=== PATIENT | male | born 1980 | race Two or more races ===

== ENCOUNTER 2017-04-26 08:49 | Outpatient (CLI) | payer MEDICARE ==
[2017-04-26 19:22] LABS: BASOPHILS # (AUTO) 0.1 10^3/uL (0.0-0.1); BASOPHILS % (AUTO) 0.7 %; EOSINOPHILS # (AUTO) 0.1 10^3/uL (0.0-0.7); EOSINOPHILS % (AUTO) 1.5 %; HCT - HEMATOCRIT 49.7 % (42.0-52.0); HGB - HEMOGLOBIN 16.7 g/dL (14.0-18.0); LYMPHOCYTES # (AUTO) 1.8 10^3/uL (1.5-3.5); LYMPHOCYTES % (AUTO) 23.4 %; MEAN CORPUSCULAR HGB CONC 33.6 g/dL (32.0-36.0); MEAN CORPUSCULAR VOLUME 89.2 fL (80.0-94.0); MEAN PLATELET VOLUME 9.6 fL (7.4-11.4); MONOCYTES # (AUTO) 0.5 10^3/uL (0.0-1.0); MONOCYTES % (AUTO) 6.9 %; NEUTROPHILS # (AUTO) 5.3 10^3/uL (1.5-6.6); NEUTROPHILS % (AUTO) 67.5 %; RED BLOOD COUNT 5.57 10^6/uL (4.70-6.10); RED CELL DISTRIBUTION WIDTH 13.9 % (12.0-15.0); UNCORRECTED WHITE BLOOD COUNT 7.9 x10^3/uL; WHITE BLOOD COUNT 7.9 x10^3/uL (4.8-10.8)
[2017-04-26 19:42] LABS: ALBUMIN/GLOBULIN RATIO 1.7 (1.0-2.2); BILIRUBIN,TOTAL 0.7 mg/dL (0.2-1.0); CALCIUM 9.4 mg/dL (8.5-10.3); POTASSIUM 3.7 mmol/L (3.5-5.0); TOTAL PROTEIN 7.2 g/dL (6.7-8.2)
== END 2017-04-26 08:50 | disposition home or self-care (01) ==
LOC: LAB.N 08:49
PROVIDERS: ATTEND Physician Assistant
DX: G47.00 Insomnia, unspecified (principal); R53.83 Other fatigue; F31.30 Bipolar disorder, current episode depressed, mild or moderate severity, unspecified
CPT/HCPCS: 36415; 80053; 84403; 84443; 85025

== ENCOUNTER → 2017-05-03 | Outpatient (CLI) | payer MEDICARE ==
[2017-05-07 23:21] LABS: TEST RESULT REPORT (())
== END ==
LOC: LAB.WCP 08:00
PROVIDERS: ATTEND Family Medicine
DX: E29.1 Testicular hypofunction (principal)
CPT/HCPCS: 36415; 81599; 84402; 84403

== ENCOUNTER 2017-06-18 06:18 | Day surgery (SDC) | payer MEDICARE, MEDICAID ==
[2017-06-18] MEDS ORDERED: ceFAZolin 2 GM/50 ML 50 ML IV ONE (06:33)
[2017-06-18] MEDS ORDERED: fentaNYL 100 MCG/2 ML VIAL IVP ONE (06:35)
[2017-06-18] MEDS ORDERED: DEXAMETHASONE 4 MG/ML VIAL IVP ONE (06:35)
[2017-06-18] MEDS ORDERED: LACTATED RINGERS 1,000 ML IV ONE (06:35)
[2017-06-18] MEDS ORDERED: SUCCINYLCHOLINE 200 MG/10 ML VIAL IVP ONE (06:35)
[2017-06-18] MEDS ORDERED: GLYCOPYRROLATE 1 MG/5 ML VIAL IVP ONE (06:35)
[2017-06-18] MEDS ORDERED: NEOSTIGMINE 1 MG/1 ML 10 ML MDV IVP ONE (06:35)
[2017-06-18] MEDS ORDERED: LIDOCAINE-MPF 2% 5 ML VIAL IM ONE (06:35)
[2017-06-18] MEDS ORDERED: ACETAMINOPHEN 1,000 MG/100 ML 100 ML IV ONE (06:35)
[2017-06-18] MEDS ORDERED: ROCURONIUM 50 MG/5 ML VIAL IVP ONE (06:35)
[2017-06-18] MEDS ORDERED: MIDAZOLAM 2 MG/2 ML VIAL IVP ONE (06:35)
[2017-06-18] MEDS ORDERED: ONDANSETRON 4 MG/2 ML VIAL IVP ONE (06:35)
[2017-06-18] MEDS ORDERED: BUPIVACAINE 0.5%-EPI 1:200000 PF 30 ML VIAL SUBQ ONE (08:26)
--- NOTE | 2017-06-18 08:56 | OPERATIVE REPORT ---
Operative Report - General Procedure Date: 06/18/17 Planned Procedure: Anal fistulotomy Pre-Op Diagnosis: Anal fistula Procedure Performed: Anal fistulotomy - Procedure Note Anesthesia Technique: General ET tube, Local (30 mL 1/2% marcaine with epinephrine) IV Fluids (mL): 850 Estimated Blood Loss (mL): 0 Complications: None. - Other Other Information/Narrative: OPERATIVE DESCRIPTION/REPORT: After verbal and written informed consent was obtained detailing the risks of infection, bleeding requiring transfusion with its risks, nerve injury, and , and after I met with the patient confirming the surgery and the site of the surgery, the patient was brought to the operative suite and placed supine on the operating table. Great care was taken to avoid pressure points to prevent pressure necrosis or nerve injury. Monitoring devices were applied along with TEDs and pneumatic compressive stockings (to prevent DVT). The patient received preoperative antibiotics for surgical prophylaxis. Joshua Marley sedated and anesthetized the patient for the entire procedure. The patient was placed prone and confirming the surgery and the site of the surgery , the patient was brought to the operative suite and placed supine on the operating table. and again great care was taken to avoid pressure points to prevent pressure necrosis or nerve injury. The patient was prepped and draped in the usual sterile manner. The surgical site was unique and easily identifiable and did not need to be marked preoperatively. A "time in" then confirmed that the paitient was identified with 3 identifiers (name, date and medical record number), the history and physical was in the chart, the signed consent confirming the procedure was in the chart, the patient was in the correct position, the aforementioned prophylactic measures were in place or given, we had the correct personel and equipment to complete the procedure and that anesthesia, surgery and nursing were given an opportunuty to express any concerns. With the agreement of everyone in the room, we proceeded with the operation. The bivalve anal retractor was placed in the patients anus after thoroughly lubricating it with a water-soluble lubricant. Examination revealed some slight internal and hemorrhoidal complexes as well as a fistula that originated at the 10:30 oclock position and exited at the 12 oclock position. A fistulotomy probe was placed from the origin to the exit with grest care to ensure that I did not form a false passage. The skin and subcutaneous tissue defined by the placement of the wire was then incised using Bovie electrocautery cutting down to the wire. The wire was removed and the fistulous passage was cauterized to allow for new healing to occur. No significant bleeding was noted. The surrounding tissues were then injected using half percent Marcaine with epinephrine for long-term pain control. This incision was left open and dressings were applied. At this point a time out was performed that confirmed that all the counts were correct, the procedure that was performed, the blood loss, the IV fluids administered, and the patients condition. All surgical counts were reported as correct. A dressing was applied. Having tolerated the procedure well, the patient was subsequently taken to short stay in good and stable condition.
[2017-06-18 09:06] VITALS: BP 115/74
[2017-06-18] MEDS ORDERED: HYDROcod/ACETAM 10 MG/325 MG TABLET ONE (09:33)
== END 2017-06-18 06:19 | disposition home or self-care (01) ==
LOC: SDS 06:18
PROVIDERS: ATTEND Surgery
PROC: 0DBQ0ZZ Excision of Anus, Open Approach (ICD-10-PCS; principal; 2017-06-18 07:30)
DX: K60.3 Anal fistula (principal); K64.8 Other hemorrhoids; F17.210 Nicotine dependence, cigarettes, uncomplicated
CPT/HCPCS: 46270; A9270; J0131; J0690; J7120

== ENCOUNTER 2018-10-16 15:00 | Outpatient (CLI) | payer MEDICARE ==
[2018-10-16 15:47] LABS: ALBUMIN 4.6 g/dL (3.2-5.5); ALBUMIN/GLOBULIN RATIO 1.5 (1.0-2.2); BILIRUBIN,TOTAL 0.9 mg/dL (0.2-1.0); CALCIUM 9.6 mg/dL (8.5-10.3); CREATININE 0.8 mg/dL (0.6-1.2); TOTAL PROTEIN 7.6 g/dL (6.7-8.2)
[2018-10-16 15:54] LABS: HB2 TOTAL 18.1 g/dL; HEMOGLOBIN A1C 0.62 g/dL; HEMOGLOBIN A1C % 5.3 % (4.6-6.2)
[2018-10-16 16:10] LABS: BASOPHILS % (AUTO) 0.5 %; EOSINOPHILS # (AUTO) 0.1 10^3/uL (0.0-0.7); EOSINOPHILS % (AUTO) 1.4 %; HGB - HEMOGLOBIN 16.7 g/dL (14.0-18.0); LYMPHOCYTES # (AUTO) 1.8 10^3/uL (1.5-3.5); LYMPHOCYTES % (AUTO) 21.8 %; MEAN CORPUSCULAR HEMOGLOBIN 30.1 pg (27.0-31.0); MEAN CORPUSCULAR HGB CONC 34.5 g/dL (32.0-36.0); MEAN CORPUSCULAR VOLUME 87.3 fL (80.0-94.0); MEAN PLATELET VOLUME 8.9 fL (7.4-11.4); MONOCYTES # (AUTO) 0.6 10^3/uL (0.0-1.0); MONOCYTES % (AUTO) 7.7 %; NEUTROPHILS # (AUTO) 5.5 10^3/uL (1.5-6.6); NEUTROPHILS % (AUTO) 68.6 %; PLT - PLATELET COUNT 218 10^3/uL (130-450); RED BLOOD COUNT 5.55 10^6/uL (4.70-6.10); RED CELL DISTRIBUTION WIDTH 14.2 % (12.0-15.0); WHITE BLOOD COUNT 8.1 x10^3/uL (4.8-10.8)
== END 2018-10-16 15:01 | disposition home or self-care (01) ==
LOC: LAB 15:00
PROVIDERS: ATTEND Surgery
DX: R10.9 Unspecified abdominal pain (principal); R73.9 Hyperglycemia, unspecified
CPT/HCPCS: 36415; 80053; 83036; 85025

== ENCOUNTER 2018-10-20 14:46 | Outpatient (CLI) | payer MEDICARE ==
[2018-10-20] MEDS ORDERED: IOVERSOL 320 50 ML VIAL ONE (14:54)
[2018-10-20] MEDS ORDERED: IOVERSOL 320 100 ML VIAL IVP ONE ×2 (14:54→16:33)
[2018-10-20] MEDS ORDERED: IOVERSOL 320 50 ML VIAL PO ONE (16:30)
--- NOTE | 2018-10-21 11:58 | CT Report ---
Reason: ABDOMINAL/PERINEAL PAIN,HX OF FISTULA Procedure Date: 10/20/2018 Accession Number: [id number] / [id number] Procedure: CT - Abdomen/Pelvis W/ CPT Code: FULL RESULT: EXAM: CT ABDOMEN AND PELVIS EXAM DATE: 10/20/2018 03:55 PM. CLINICAL HISTORY: Abdominal/perineal pain, history of fistula. COMPARISONS: ABDOMEN/PELVIS W/ 11/13/2015 10:53 AM. TECHNIQUE: Routine helical CT imaging was performed through the abdomen and pelvis. IV contrast: OPTIRAY 320 90 mL. Enteric contrast: Yes. Reconstructions: Coronal and sagittal. In accordance with CT protocol optimization, one or more of the following dose reduction techniques were utilized for this exam: automated exposure control, adjustment of mA and/or KV based on patient size, or use of iterative reconstructive technique. FINDINGS: Lung Bases: Unremarkable. Liver: Normal. No masses. Gallbladder/Bile Ducts: Unremarkable. Spleen: Normal. Pancreas: Normal. Adrenal Glands: Normal. Kidneys: Normal. No masses or hydronephrosis. Peritoneal Cavity/Bowel: There is diverticulosis predominantly of the sigmoid colon without diverticulitis. No free fluid, free air or adenopathy. No masses or acute inflammatory process. The appendix is well visualized and normal. Pelvic Organs: The perianal fat in the region of the levator ani appears unremarkable. The prostate is mildly asymmetric and contains a few calcifications, more prominent on the left which is nonspecific. There is no inguinal hernia. Vasculature: No aneurysms or other significant abnormality. Bones: No significant abnormality. Other: None. IMPRESSION: Prominent mildly asymmetric prostate of uncertain clinical significance. The ischioanal fossa region is unremarkable by CT. RADIA
== END 2018-10-20 14:47 | disposition home or self-care (01) ==
LOC: DI 14:46
PROVIDERS: ATTEND Surgery
DX: R10.9 Unspecified abdominal pain (principal); R10.2 Pelvic and perineal pain
CPT/HCPCS: 74177; Q9967

== ENCOUNTER 2020-04-01 22:07 | Emergency (ER) | payer MEDICARE ==
--- NOTE | 2020-04-01 22:48 | ED Physician Documentation ---
History of Present Illness - Stated complaint Stated Complaint: RASH ON BODY/PX/HEADACHE - Chief complaint Chief Complaint: General - History obtained from History obtained from: Patient - History of Present Illness Timing: Other (see below (different timeframes for different c/o)) Pain level now: 4 Improved by: no ameliorating factors Worsened by: no exacerbating factors - Additonal information Additional information: c/o 1 week of right chest "cramps" (per patient) radiating around right side of chest to right parathoracic area. He developed epigastric pain and bloating sensation 2-3 days ago. Reports fever Tmax 100.7 last night. he developed a right chest rash 2-3 days ago. Review of Systems Constitutional: reports: Fever. denies: Chills, Sweats Cardiac: reports: Chest pain / pressure (right chest wall pain). denies: Palpitations GI: reports: Abdominal Pain. denies: Nausea, Vomiting, Constipation, Diarrhea : denies: Dysuria, Frequency Skin: reports: Rash PD PAST MEDICAL HISTORY - Past Medical History Past Medical History: Yes Cardiovascular: None Respiratory: None Endocrine/Autoimmune: None GI: Hiatal hernia, Colon polyps, Other : None HEENT: None Psych: Bipolar disorder, Anxiety Musculoskeletal: None Derm: None - Past Surgical History Past Surgical History: Yes General: EGD, Colonoscopy Ortho: Other - Present Medications Home Medications: Ambulatory Orders Medication Instructions Recorded Confirmed Acyclovir 800 mg PO 5XD 7 Days #35 tablet 04/02/20 traMADol [Ultram] 50 - 100 mg PO Q6H PRN #20 tablet 04/02/20 - Allergies Allergies/Adverse Reactions: Allergies Allergy/AdvReac Type Severity Reaction Status Date / Time ibuprofen [From Advil] Allergy Severe Rash Verified 04/01/20 22:10 lithium [[place]] Allergy Severe Rash Verified 04/01/20 22:10 bee venom protein (honey bee) Allergy Unknown Verified 04/01/20 22:10 aripiprazole [From Abilify] AdvReac Unknown Verified 04/01/20 22:10 codeine AdvReac Unknown Verified 04/01/20 22:10 paroxetine AdvReac Unknown Verified 04/01/20 22:10 bee stings Allergy Respiratory Uncoded 04/01/20 22:10 - Social History Does the pt smoke?: Yes Smoking Status: Current every day smoker Does the pt drink ETOH?: Yes Does the pt have substance abuse?: No - Immunizations Immunizations are current?: Yes - POLST Patient has POLST: No PD ED PE NORMAL - Vitals Vital signs reviewed: Yes - General General: Alert and oriented X 3, No acute distress, Well developed/nourished - HEENT HEENT: Moist mucous membranes - Neck Neck: Supple, no meningeal sign - Cardiac Cardiac: RRR, No murmur, No gallop, No rub - Respiratory Respiratory: No respiratory distress, Clear bilaterally - Abdomen Abdomen: Normal bowel sounds, Soft, Non tender, Non distended PD ED PE EXPANDED - Derm Derm: Rash (right chest exanthem in dermatomal distribution from lateral aspect to anterior midline without crossing midline; exanthem consists of grouped vesicles on erythematous, patchy base) Results - Vitals Vitals: Oxygen O2 Source Room air - Labs Labs: Laboratory Tests 04/01/20 04/01/20 23:20 23:20 WBC 8.3 RBC 5.53 Hgb 16.3 Hct 48.9 MCV 88.4 MCH 29.5 MCHC 33.3 RDW 13.2 Plt Count 190 MPV 10.4 Neut # (Auto) 5.8 Lymph # (Auto) 1.5 [place] # (Auto) 0.7 Eos # (Auto) 0.2 Baso # (Auto) 0.0 Absolute Nucleated RBC 0.00 Nucleated RBC % 0.0 Sodium 136 Potassium 3.6 Chloride 101 Carbon Dioxide 25 Anion Gap 10.0 BUN 18 Creatinine 1.0 Estimated GFR (MDRD) 82 L Glucose 113 H Calcium 9.1 Total Bilirubin 0.7 AST 21 ALT 35 Alkaline Phosphatase 56 Total Protein 7.4 Albumin 4.2 Globulin 3.2 Albumin/Globulin Ratio 1.3 Lipase 40 - Rads (name of study) RUQ US Radiology: Prelim report reviewed, See rad report PD MEDICAL DECISION MAKING - ED course Complexity details: reviewed results, re-evaluated patient, considered differential, d/w patient ED course: rash on exam c/w shingles. rash appeared 2-3 days ago, will rx acyclovir. vicodin prescribed for pain. Patient expresses concern that he might have COVID. His symptoms sound inconsistent with COVID although he does report fever last night Tmax 100.7, and thus testing is reasonable and performed. There was incidental finding on US of possible GB (fundus) mass. I reviewed this result with patient and instructed him to follow up with his primary care provider, as this will need further testing. I stressed the importance of timely follow up. Departure - Departure Disposition: 01 Home, Self Care Clinical Impression: Shingles Qualifiers: Herpes zoster complications: without complications Qualified Code(s): B02.9 - Zoster without complications Condition: Good Instructions: ED Shingles Follow-Up: Syd Hoskins MD [Primary Care Provider] - Within 1 week Prescriptions: Acyclovir 800 mg PO 5XD 7 Days #35 tablet traMADol [Ultram] 50 - 100 mg PO Q6H PRN #20 tablet PRN Reason: Pain Comments: As we discussed, there is an abnormality on your ultrasound. This is not causing your symptoms, but needs to be followed-up with further testing to determine the nature of the irregularity; these tests can be performed in the outpatient setting, but you need to see your primary care provider so further testing can be ordered. Discharge Date/Time: 04/02/20 02:40
[2020-04-01 23:30] LABS: BASOPHILS % (AUTO) 0.4 %; EOSINOPHILS # (AUTO) 0.2 10^3/uL (0.0-0.7); EOSINOPHILS % (AUTO) 2.5 %; HGB - HEMOGLOBIN 16.3 g/dL (14.0-18.0); LYMPHOCYTES # (AUTO) 1.5 10^3/uL (1.5-3.5); LYMPHOCYTES % (AUTO) 18.3 %; MEAN CORPUSCULAR HEMOGLOBIN 29.5 pg (27.0-31.0); MEAN CORPUSCULAR HGB CONC 33.3 g/dL (32.0-36.0); MEAN CORPUSCULAR VOLUME 88.4 fL (80.0-94.0); MEAN PLATELET VOLUME 10.4 fL (7.4-11.4); MONOCYTES # (AUTO) 0.7 10^3/uL (0.0-1.0); MONOCYTES % (AUTO) 8.7 %; NEUTROPHILS # (AUTO) 5.8 10^3/uL (1.5-6.6); NEUTROPHILS % (AUTO) 69.7 %; PLT - PLATELET COUNT 190 10^3/uL (130-450); RED BLOOD COUNT 5.53 10^6/uL (4.70-6.10); RED CELL DISTRIBUTION WIDTH 13.2 % (12.0-15.0); WHITE BLOOD COUNT 8.3 x10^3/uL (4.8-10.8)
[2020-04-01 23:40] LABS: ALBUMIN 4.2 g/dL (3.2-5.5); ALBUMIN/GLOBULIN RATIO 1.3 (1.0-2.2); BILIRUBIN,TOTAL 0.7 mg/dL (0.2-1.0); CALCIUM 9.1 mg/dL (8.5-10.3); TOTAL PROTEIN 7.4 g/dL (6.7-8.2)
[2020-04-02] MEDS ORDERED: traMADol 50 MG TABLET PO STA (02:19)
[2020-04-02] MEDS ORDERED: ACYCLOVIR 200 MG CAPSULE PO STA (02:20)
[2020-04-02 02:31] VITALS: BP 113/81
--- NOTE | 2020-04-02 09:23 | Ultrasound Report ---
PROCEDURE: Abdomen Limited INDICATIONS: abd. pain TECHNIQUE: Real-time focused scanning was performed of the abdomen, with image documentation. COMPARISON: CT abdomen and pelvis dated 10/20/2018 FINDINGS: There is focal masslike thickening of the gallbladder fundus with flow present measuring a pproximately 1.2 x 1.0 x 1.5 cm. This is suspicious for a possible incidental gallbladder carcinoma. No pain on examination. No gallstones. Gallbladder wall is otherwise thin. No biliary ductal dilatation. Common hepatic duct measures 5.7 mm. Common bile duct measures 5.6 mm. Liver has a normal echo pattern without masses. No right hydronephrosis. Right kidney measures 10.3 c m. Pancreas is not visualized secondary to overlying bowel gas. IMPRESSION: 1. Fundal gallbladder wall mass with flow measuring 1.2 x 1.0 x 1.5 cm. Consider incidental gallbladd er carcinoma. A preliminary report with the above findings was provided at the time of the study by [facility]. Above discussed with JUAN DIEGO KATHLEEN at the time of dictation. On 04/02/2020 at 0915 hours PDT. Reviewed by: Damion Ricci MD on 04/02/2020 8:21 AM THERESA Approved by: Damion Ricci MD on 04/02/2020 8:21 AM THERESA Station ID: [id number]
== END 2020-04-02 02:40 | disposition home or self-care (01) ==
LOC: ED 22:07
DX: B02.9 Zoster without complications (principal); K82.8 Other specified diseases of gallbladder; R50.9 Fever, unspecified; Z20.828 Contact with and (suspected) exposure to other viral communicable diseases; F17.200 Nicotine dependence, unspecified, uncomplicated
CPT/HCPCS: 36415; 76705; 80053; 81599; 83690; 85025; 99284; A9270

== ENCOUNTER 2020-04-25 09:49 | Outpatient (CLI) | payer MEDICARE ==
[2020-04-25] MEDS ORDERED: IOVERSOL 320 100 ML VIAL IVP ONE ×2 (10:02→11:09)
[2020-04-25] MEDS ORDERED: IOVERSOL 320 50 ML VIAL ONE (10:02)
[2020-04-25] MEDS ORDERED: IOVERSOL 320 50 ML VIAL PO ONE (11:09)
--- NOTE | 2020-04-25 12:04 | CT Report ---
PROCEDURE: Abdomen/Pelvis W INDICATIONS: GALLBLADDER MASS, ABD PAIN CONTRAST: IV CONTRAST: Optiray 320 ml: 100 PO CONTRAST: Optiray 320 ml50 TECHNIQUE: After the administration of oral and intravenous contrast, 5 mm thick sections acquired from the diap hragms to the symphysis. 5 mm thick coronal and sagittal reformats were acquired. For radiation dos e reduction, the following was used: automated exposure control, adjustment of mA and/or kV accordin g to patient size. COMPARISON: CT abdomen/pelvis dated 10/20/2018, 11/13/2015, and 01/13/2014. Ultrasound dated 11/14/2015. FINDINGS: Image quality: Excellent. ABDOMEN: Lung bases: Lung bases are clear. Heart size is normal. Solid organs: Liver and spleen are normal in size and enhancement. 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 There is no invasion of the surrounding structures. Biliary system is non dilated. Pancreas enhances normally. No adrenal nodules. Kidneys demonstrate normal size and enhancement, without hydronephrosis. Peritoneum and bowel: Apparent thickening of the wall of the sigmoid colon is most likely secondary to underdistention. The remainder of the colon appears normal. The terminal ileum and distal small nedra wel are underdistended, and suboptimally evaluated. The appendix appears normal. No free fluid or air . Nodes and vessels: No retroperitoneal or mesenteric adenopathy by size criteria. Aorta and inferior vena cava are normal in size. Miscellaneous: No ventral hernias. PELVIS: Genitourinary: Bladder wall thickness is normal. Coarse calcifications are seen in the prostate. Miscellaneous: No inguinal hernias or adenopathy. Bones: No suspicious bony lesions. No vertebral body compression fractures. IMPRESSION: 1. No acute inflammatory changes are identified in the small or large bowel. However, evaluation for wall thickening is compromised by underdistention. CT or MR enterography may be obtained if there is continued suspicion for inflammatory bowel disease. 2. Gallbladder wall thickening at the fundus with associated enhancement has not significant changed when compared to multiple exams dating back to 2013, and most likely represents focal benign adenomy omatosis. Reviewed by: Scotty Miller MD on 04/25/2020 12:02 PM PDT Approved by: Scotty Miller MD on 04/25/2020 12:02 PM PDT Station ID: [id number]
== END 2020-04-25 09:50 | disposition home or self-care (01) ==
LOC: DI 09:49
PROVIDERS: ATTEND Surgery
DX: D49.0 Neoplasm of unspecified behavior of digestive system (principal); R10.9 Unspecified abdominal pain
CPT/HCPCS: 74177; Q9967

== ENCOUNTER 2020-05-10 09:46 | Day surgery (SDC) | payer MEDICARE ==
[~2020-05-10 09:46] MED LIST: BUPIVACAINE 0.25% PF 30 ML VIAL ONE; CEFAZOLIN SODIUM IN 0.9 % NACL 2 GM/100 ML BAG IV ONE
[2020-05-10] MEDS ORDERED: LIDOCAINE-MPF 2% 5 ML VIAL IM ONE (09:47)
[2020-05-10] MEDS ORDERED: PROPOFOL 200 MG/20 ML VIAL IVP ONE (09:47)
[2020-05-10] MEDS ORDERED: ROCURONIUM 50 MG/5 ML VIAL IVP ONE (09:47)
[2020-05-10] MEDS ORDERED: ACETAMINOPHEN 1,000 MG/100 ML 100 ML IV ONE (09:47)
[2020-05-10] MEDS ORDERED: ONDANSETRON 4 MG/2 ML VIAL IVP ONE (09:47)
[2020-05-10] MEDS ORDERED: fentaNYL 100 MCG/2 ML VIAL IVP ONE (09:47)
[2020-05-10] MEDS ORDERED: DEXAMETHASONE 4 MG/ML VIAL IVP ONE (09:47)
[2020-05-10] MEDS ORDERED: KETOROLAC 30 MG/ML VIAL IVP ONE (09:47)
[2020-05-10] MEDS ORDERED: MIDAZOLAM 2 MG/2 ML VIAL IVP ONE (09:47)
--- NOTE | 2020-05-10 09:56 | ANESTHESIA ---
Pre-Anesthesia VS, & Labs - Diagnosis gallbladder mass - Procedure laparoscopic cholecystectomy Vital Signs: Temp Pulse Resp BP Pulse Ox 36.6 C 98 16 128/90 H 97 05/10/20 09:51 05/10/20 09:51 05/10/20 09:51 05/10/20 09:51 05/10/20 09:51 Height 5 ft 10 in Weight (kg) 92.9 kg Body Mass Index 30.4 - NPO Other (no solids for >8 hrs, black coffee 3 hours ago) - Lab Results Lab results reviewed: Yes Home Medications and Allergies Home Medications: Ambulatory Orders No Known Home Medications 05/10/20 Allergies/Adverse Reactions: Allergies Allergy/AdvReac Type Severity Reaction Status Date / Time ibuprofen [From Advil] Allergy Severe Rash Verified 04/01/20 22:10 lithium [[place]] Allergy Severe Rash Verified 04/01/20 22:10 bee venom protein (honey bee) Allergy Unknown Verified 04/01/20 22:10 aripiprazole [From Abilify] AdvReac Unknown Verified 04/01/20 22:10 codeine AdvReac Unknown Verified 04/01/20 22:10 paroxetine AdvReac Unknown Verified 04/01/20 22:10 bee stings Allergy Respiratory Uncoded 04/01/20 22:10 Anes History & Medical History - Anesthetic History Anesthesia Complications: reports: No previous complications Family history of Anesthesia Complications: Denies Family history of Malignant Hyperthermia: Denies - Medical History Cardiovascular: reports: None Pulmonary: reports: None Gastrointestinal: reports: Hiatal hernia, Colon polyps, Other Urinary: reports: None Musculoskeletal: reports: None Endocrine/Autoimmune: reports: None Blood Disorders: reports: None Skin: reports: None Smoking Status: Current every day smoker Psychosocial: reports: Anxiety, Other (bipolar) - Surgical History General: EGD, Colonoscopy Orthopedic: Other Exam General: Alert, Oriented x3, Cooperative, No acute distress Dental: WNL Mouth Openin Fingerbreadth Neck Mobility: Normal Mallampati classification: II Respiratory: Lungs clear, Normal breath sounds, No respiratory distress, No accessory muscle use Cardiovascular: Regular rate, Normal S1, Normal S2, No murmurs Plan Anesthesia Type: General Consent for Procedure(s) Verified and Reviewed: Yes Code Status: Attempt Resuscitation ASA classification: 2-Mild systemic disease Is this case an emergency?: No
[2020-05-10] MEDS ORDERED: LACTATED RINGERS 1,000 ML IV ONE ×2 (10:11→12:30)
[2020-05-10] MEDS ORDERED: METOCLOPRAMIDE 10 MG/2 ML VIAL IVP PRN (10:30)
[2020-05-10] MEDS ORDERED: ONDANSETRON 4 MG/2 ML VIAL IVP PRN ×2 (10:30→12:35)
[2020-05-10] MEDS ORDERED: ePHEDrine 50 MG/ML VIAL IVP PRN (10:30)
[2020-05-10] MEDS ORDERED: NALOXONE 0.4 MG/ML VIAL IVP PRN (10:30)
[2020-05-10] MEDS ORDERED: MORPHINE 2 MG/ML CARPUJECT IVP PRN (10:30)
[2020-05-10] MEDS ORDERED: HYDROmorphone 0.5 MG/0.5 ML SYRINGE IVP PRN (10:30)
[2020-05-10] MEDS ORDERED: fentaNYL 100 MCG/2 ML VIAL IVP PRN (10:30)
[2020-05-10] MEDS ORDERED: ATROPINE ABBOJECT 1 MG/10 ML SYRINGE IVP PRN (10:30)
[2020-05-10] MEDS ORDERED: LACTATED RINGERS 1,000 ML IV SCH (11:00)
[2020-05-10] MEDS ORDERED: BUPIVACAINE 0.25% PF 30 ML VIAL SUBQ ONE ×2 (11:06)
[2020-05-10] MEDS ORDERED: HYDROcod/ACETAM 10 MG/325 MG TABLET PO PRN (12:35)
[2020-05-10] MEDS ORDERED: HYDROcod/ACETAM 10 MG/325 MG TABLET ONE (13:09)
--- NOTE | 2020-05-10 13:14 | OPERATIVE REPORT ---
DATE OF SERVICE: 05/10/2020 Physician: Devonte Sow MD PREOPERATIVE DIAGNOSIS: Gallbladder mass. POSTOPERATIVE DIAGNOSES 1. Gallbladder mass. 2. Chronic cholecystitis. PROCEDURE PERFORMED: Laparoscopic cholecystectomy. SURGEON: Devonte Sow MD ANDROID FRAMEWORK DEVELOPER: None. ANESTHESIA: General endotracheal anesthesia. Local anesthesia with Marcaine. COMPLICATIONS: None. SPECIMEN: Gallbladder, removed intact. ESTIMATED BLOOD LOSS: None. COMPLICATIONS: None. DRAINS: None. FINDINGS: Mass was apparent at the fundus of the gallbladder. There was no evidence of malignancy. Liver was normal. Cystic duct small. Common hepatic duct was visualized without dissection. INDICATIONS FOR PROCEDURE: The patient is a 40-year-old gentleman with history of epigastric discomfort. Recently had shingles in the right upper quadrant and an ultrasound. Ultrasound revealed a mass at the fundus. A CT scan was then performed. There was no evidence of malignancy by CT scan. He presents for laparoscopic cholecystectomy. Risks discussed, alternatives discussed. All questions answered and consent obtained. DESCRIPTION OF PROCEDURE: The patient was properly identified, brought to the operating room and placed in supine position. He voided prior to surgery. General endotracheal anesthesia was induced. Sequential compression devices were placed. He was prepped and draped in a sterile fashion, given preoperative antibiotics. Local anesthetic was given to incision areas. An infraumbilical incision was made. Dissection proceeded down to the fascia. The fascia was incised, lifted upwards and abdomen entered with the Veress needle. CO2 was insufflated to a pressure of 15. An 11-mm trocar was placed, followed by 30-degree scope. There was no evidence of injury from Veress needle or trocar placement. Under direct vision, two 5-mm trocars were placed in the right upper quadrant and a 10-mm trocar was placed in the epigastrium. He had omental adhesions to the gallbladder. The gallbladder was grasped below the mass. Omental adhesions were then taken down. Lateral attachments were partially taken down, further mobilizing the gallbladder away from the duodenum. He had loose duodenal attachments as well. These were carefully taken down with minimal use of cautery. The infundibulum of the gallbladder was retracted right, lateral and caudad. The node of [place] was scarred at the infundibulum and cystic duct area. The node of [place] was carefully peeled down. Cystic artery was fairly scarred to the cystic artery. The cystic artery and cystic duct were from one another using the [place] dissector. The gallbladder was further mobilized off from the liver, creating a large bare cystic plate area. The cystic duct and cystic artery were both clipped at the gallbladder and x2-3 slightly proximal, and sharply divided. The gallbladder was carefully removed from the liver without spillage. The gallbladder was placed in an EndoCatch bag and brought out intact. The fascia and epigastrium was closed with a [id number] 0 Vicryl. Hemostasis was assured. Trocars were removed under direct vision and CO2 evacuated. Fascia at the infraumbilical site was closed with a running 0 Vicryl suture. Skin was closed with buried interrupted 4-0 Monocryl. Dressings were applied. He tolerated the procedure very well. TD: 05/10/2020 13:01 JOSE JUAN
--- NOTE | 2020-05-10 13:17 | ANESTHESIA POST OP EVALUATION ---
Anesthesia Post Eval - Post Anesthesia Eval Vitals: Last Vital Signs Temp 36.8 C 05/10/20 12:50 Pulse 83 05/10/20 12:50 Resp 16 05/10/20 12:50 BP 115/92 H 05/10/20 12:50 Pulse Ox 95 05/10/20 12:50 CV Function Including HR & BP: positive: Stable Pain Control: positive: Satisfactory Nausea & Vomiting: positive: Negative Mental Status: positive: Patient Participates Respiratory Status: Airway Patent Hydration Status: Satisfactory Anesthesia Complications: positive: None
[2020-05-10 13:50] VITALS: BP 123/88
== END 2020-05-10 09:47 | disposition home or self-care (01) ==
LOC: SDS 09:46
PROVIDERS: ATTEND Surgery
PROC: 0FT44ZZ Resection of Gallbladder, Percutaneous Endoscopic Approach (ICD-10-PCS; principal; 2020-05-10 10:45)
DX: D13.5 Benign neoplasm of extrahepatic bile ducts (principal); K81.1 Chronic cholecystitis; F17.210 Nicotine dependence, cigarettes, uncomplicated; F31.89 Other bipolar disorder; F51.04 Psychophysiologic insomnia; K44.9 Diaphragmatic hernia without obstruction or gangrene
CPT/HCPCS: 47562; A9270; J0131; J0690; J7120

== ENCOUNTER 2020-12-26 10:12 | Outpatient (CLI) | payer MEDICARE ==
[2020-12-26 18:26] LABS: BASOPHILS % (AUTO) 0.4 %; EOSINOPHILS # (AUTO) 0.1 10^3/uL (0.0-0.7); HCT - HEMATOCRIT 51.2 % (42.0-52.0); HGB - HEMOGLOBIN 16.8 g/dL (14.0-18.0); LYMPHOCYTES # (AUTO) 1.5 10^3/uL (1.5-3.5); LYMPHOCYTES % (AUTO) 17.8 %; MEAN CORPUSCULAR HEMOGLOBIN 29.7 pg (27.0-31.0); MEAN CORPUSCULAR HGB CONC 32.8 g/dL (32.0-36.0); MEAN CORPUSCULAR VOLUME 90.5 fL (80.0-94.0); MEAN PLATELET VOLUME 10.9 fL (7.4-11.4); MONOCYTES # (AUTO) 0.5 10^3/uL (0.0-1.0); MONOCYTES % (AUTO) 5.9 %; NEUTROPHILS # (AUTO) 6.3 10^3/uL (1.5-6.6); NEUTROPHILS % (AUTO) 74.7 %; PLT - PLATELET COUNT 213 10^3/uL (130-450); RED BLOOD COUNT 5.66 10^6/uL (4.70-6.10); RED CELL DISTRIBUTION WIDTH 13.4 % (12.0-15.0); WHITE BLOOD COUNT 8.4 x10^3/uL (4.8-10.8)
[2020-12-26 19:25] LABS: THYROID STIMULATING HORMONE 0.62 uIU/mL (0.34-5.60)
[2020-12-26 19:32] LABS: FERRITIN 211.4 ng/mL (23.9-336.2)
[2020-12-26 19:34] LABS: MICROALBUMIN,URINE 0.2 mg/dL (0-300.0)
[2020-12-26 19:36] LABS: % IRON SATURATION 19 % (20-50); ALBUMIN 4.7 g/dL (3.2-5.5); ALBUMIN/GLOBULIN RATIO 1.7 (1.0-2.2); ALKALINE PHOSPHATASE 60 IU/L (42-121); ALT ALANINE AMINOTRANSFERASE 32 IU/L (10-60); AST ASPARTATE AMINOTRANSFERASE 20 IU/L (10-42); BILIRUBIN,TOTAL 0.7 mg/dL (0.2-1.0); BUN - BLOOD UREA NITROGEN 23 mg/dL (6-20); CALCIUM 9.9 mg/dL (8.5-10.3); CARBON DIOXIDE - CO2 28 mmol/L (21-32); CHLORIDE 103 mmol/L (101-111); CHOL/HDL RATIO 5.5 (<5.0); CHOLESTEROL 214 mg/dL; GLUCOSE 91 mg/dL (70-100); HDL CHOLESTEROL 39 mg/dL; IRON 65 ug/dL (45-182); LDL CHOLESTEROL,CALCULATED 158 mg/dL; LDL/HDL RATIO 4.1 (<3.6); POTASSIUM 4.3 mmol/L (3.5-5.0); SODIUM 139 mmol/L (135-145); TOTAL IRON BINDING CAPACITY 336 ug/dL (250-450); TOTAL PROTEIN 7.4 g/dL (6.7-8.2); TRANSFERRIN 240 mg/dL (180-329); TRIGLYCERIDES 84 mg/dL; VLDL CHOLESTEROL 17 mg/dL
[2020-12-26 19:53] LABS: CREATININE,URINE 80.1 mg/dL; MICROALBUM/CREATININE RATIO,UR 2.5 ug/mg (<30.0)
[2020-12-26 19:54] LABS: LUTEINIZING HORMONE 2.09 mIU/mL
[2020-12-26 19:57] LABS: CREATININE 1.1 mg/dL (0.6-1.2); GFR - MDRD 73 (>89)
[2020-12-26 20:21] LABS: ESTIMATED AVERAGE GLUCOSE 100 mg/dL (70-100); HEMOGLOBIN A1c% 5.1 % (4.27-6.07)
== END 2020-12-26 10:13 | disposition home or self-care (01) ==
LOC: LAB.N 10:12
PROVIDERS: ATTEND Internal Medicine
DX: R63.4 Abnormal weight loss (principal); K60.3 Anal fistula; R61 Generalized hyperhidrosis
CPT/HCPCS: 36415; 80053; 80061; 82043; 82570; 82607; 82728; 82747; 83002; 83036; 83540; 83615; 83721; 84403; 84443; 84466; 85025

== ENCOUNTER 2020-12-30 15:52 | Outpatient (CLI) | payer MEDICARE ==
--- NOTE | 2020-12-31 00:43 | Ultrasound Report ---
PROCEDURE: Testicle INDICATIONS: SCROTAL MASS TECHNIQUE: Real-time scanning was performed of the scrotum and testicles, with image documentation. Color and p ulse Doppler interrogation was performed of both testicles. COMPARISON: None. FINDINGS: Right: Testicle is normal in size at 4.6 x 2.4 x 2.4 cm, and homogenous in echotexture. Epididymis is normal in overall size and morphology. No hydrocele or varicoceles. Overlying scrotal skin is no rmal in thickness. Left: Testicle is normal in size at 4.3 x 2 100/29 cm, and homogeneous in echotexture. Epididymis i s normal in overall size and morphology. No varicocele. Trace left hydrocele. Overlying scrotal skin is normal in thickness. Doppler: Color and pulse Doppler demonstrate normal and symmetric arterial flow in both testicles. IMPRESSION: No testicular or scrotal mass. Trace left scrotal hydrocele. Reviewed by: Stephan Brito on 12/30/2020 11:42 PM THERESA Approved by: Stephan Brito on 12/30/2020 11:42 PM THERESA Station ID: [id number]
== END 2020-12-30 15:53 | disposition home or self-care (01) ==
LOC: DI 15:52
PROVIDERS: ATTEND Internal Medicine
DX: N50.9 Disorder of male genital organs, unspecified (principal); N43.3 Hydrocele, unspecified